=== PATIENT | male | born 1945 | race African-American/Black ===

== ENCOUNTER 2020-08-14 11:11 | Emergency (ER) | payer OTHER ==
[2020-08-14 11:47] LABS: Absolute Lymphocytes (CBC) 3.3 K/uL (0.7-4.9); Basophils % 0.7 % (0-1.3); Hematocrit 42.2 % (39.6-49.0); Lymphocytes % 45.6 % (15.3-44.8); RBC Red Blood Cell Count 4.24 M/uL (4.33-5.43)
[2020-08-14] MEDS ORDERED: NA CHLORIDE 0.9% 1,000 ML ONE (11:54)
[2020-08-14 12:04] LABS: Potassium 3.6 mmol/L (3.5-5.1)
--- NOTE | 2020-08-14 12:27 | EDPHYS ---
Physician Documentation [facility] Name: Tye Stern Age: 75 yrs Sex: Male : 1945 Arrival Date: 08/14/2020 Time: 11:13 Bed 20 Private MD: ED Physician Antonio Christopher HPI: 08/14 12:04 This 75 yrs old Black Male presents to ER via Wheelchair with complaints of syncope. rn 12:05 The patient has experienced syncope. Onset: The symptoms/episode began/occurred just rn prior to arrival. Duration: This was a single episode. Associated injury: The patient did not suffer any apparent associated injury. Associated signs and symptoms: Pertinent negatives: abdominal pain, blurred vision, chest pain, combativeness, confusion, diarrhea, headache, palpitations, seizure, shortness of breath, tingling, vertigo, vomiting, weakness. Current symptoms: Currently, the patient is not experiencing any symptoms. The patient has experienced similar episodes in the past. The patient has not recently seen a physician. Reports passed out outside of hospital waiting for bus. Reports walked all around town this AM, didn't eat much for breakfast, says its pretty hot, feels like got overheated and dry. Denies preceding chest pain/sob/abd pain/headache. Did not hit head. No trauma from syncope. Was rapid response and brought in for evaluation. No current complaints, patient feels like back to normal, and states "happens all the time". . Historical: - Allergies: 11:25 No Known Allergies; ll1 - PMHx: 11:25 CVA; Hypertension; ll1 - PSHx: 11:25 Unable to obtain; ll1 - Immunization history:: Flu vaccine is up to date. - Social history:: Smoking status: Patient denies any tobacco usage or history of. - Family history:: not pertinent. - Hospitalizations: : No recent hospitalization is reported. ROS: 12:05 Constitutional: Negative for fever, chills, and weight loss, Eyes: Negative for injury, rn pain, redness, and discharge, Neck: Negative for injury, pain, and swelling, Cardiovascular: Negative for chest pain, palpitations, and edema, Respiratory: Negative for shortness of breath, cough, wheezing, and pleuritic chest pain, Abdomen/GI: Negative for abdominal pain, nausea, vomiting, diarrhea, and constipation, Back: Negative for injury and pain, : Negative for injury, bleeding, discharge, and swelling, MS/Extremity: Negative for injury and deformity, Skin: Negative for injury, rash, and discoloration, Neuro: Negative for headache, weakness, numbness, tingling, and seizure. Exam: 12:05 Constitutional: This is a well developed, well nourished patient who is awake, alert, rn and in no acute distress. Head/Face: Normocephalic, atraumatic. Eyes: Pupils equal round and reactive to light, extra-ocular motions intact. Neck: Trachea midline, no masses palpated, and no cervical lymphadenopathy. Supple, full range of motion without nuchal rigidity, or vertebral point tenderness. No Meningismus. Cardiovascular: Regular rate and rhythm. No pulse deficits. Respiratory: No increased work of breathing, no retractions or nasal flaring. Abdomen/GI: soft, non-tender Back: No spinal tenderness. No costovertebral tenderness. Full range of motion. Skin: Warm, dry with normal turgor. Normal color with no rashes, no lesions, and no evidence of cellulitis. MS/ Extremity: Pulses equal, no cyanosis. Neurovascular intact. Full, normal range of motion. Equal circumference. Neuro: Awake and alert, GCS 15, oriented to person, place, time, and situation. Cranial nerves II-XII grossly intact. 12:05 ECG was reviewed by the Attending Physician. Vital Signs: 11:23 Weight 95.25 kg; Height 6 ft. 0 in. (182.88 cm); Pain 0/10; ll1 11:39 BP 110 / 70; Pulse 68; Resp 19 S; Temp 97.1(TE); Pulse Ox 96% on R/A; Pain 0/10; jd3 12:51 BP 122 / 74; Pulse 57; Resp 16 S; Pulse Ox 98% on R/A; jd3 11:23 Body Mass Index 28.48 (95.25 kg, 182.88 cm) ll1 MDM: 11:17 Patient medically screened. rn 12:25 Differential Diagnosis: cardiac arrhythmia, idiopathic syncope, vasovagal episode, rn dehydration. Data reviewed: vital signs, nurses notes, lab test result(s), EKG, and as a result, I will discharge patient. Counseling: I had a detailed discussion with the patient and/or guardian regarding: the historical points, exam findings, and any diagnostic results supporting the discharge/admit diagnosis, lab results, the need for outpatient follow up, to return to the emergency department if symptoms worsen or persist or if there are any questions or concerns that arise at home. Response to treatment: the patient's symptoms have markedly improved after treatment, the patient's condition has returned to base line, the patient is now symptom free, patient is well hydrated. and as a result, I will discharge patient. Special discussion: I discussed with the patient/guardian in detail that at this point there is no indication for admission to the hospital. It is understood, however, that if the symptoms persist or worsen the patient needs to return immediately for re-evaluation. 08/14 11:22 Order name: CBC with Diff rn 08/14 11:22 Order name: Basic Metabolic Panel; Complete Time: 12:09 rn 08/14 11:22 Order name: CK; Complete Time: 12:09 rn 08/14 11:22 Order name: CBC with Automated Diff; Complete Time: 12:09 EDNJ 08/14 11:47 Order name: Glucose, Ancillary Testing EDNJ 08/14 11:22 Order name: IV Start; Complete Time: 11:33 rn 08/14 11:22 Order name: EKG; Complete Time: 11:22 rn 08/14 11:22 Order name: EKG - Nurse/Tech; Complete Time: 11:33 rn 08/14 11:22 Order name: Glucose Level; Complete Time: 11:39 rn EC:05 Rate is 67 beats/min. Rhythm is regular. Left axis deviation noted. QRS is positive in rn lead I and negative in lead aVF. CT interval is normal. QRS interval is normal. QT interval is normal. No Q waves. T waves are Normal. No ST changes noted. Clinical impression: NSR w/ Non-specific ST/T Changes. Interpreted by me. Reviewed by me. Administered Medications: 11:39 Drug: NS 0.9% 1000 ml Route: IV; Rate: 1000 ml; Site: left antecubital; jd3 12:30 Follow up: Response: No adverse reaction; IV Status: Completed infusion; IV Intake: jd3 1000ml Disposition: 08/14/20 12:26 Discharged to Home. Impression: Syncope and collapse, Dehydration. - Condition is Stable. - Discharge Instructions: Dehydration, Adult, Syncope. - Medication Reconciliation Form, Thank You Letter, Antibiotic Education, Prescription Opioid Use form. - Follow up: Private Physician; When: As needed; Reason: Recheck today's complaints, Re-evaluation by your physician. - Problem is new. - Symptoms have improved. Signatures: Dispatcher [employer] EDAntonio Chopra MD MD rn Davies, Jonathon, RN RN jd3 Tamy Muhammad RN RN ll1 Corrections: (The following items were deleted from the chart) 12:52 12:26 08/14/2020 12:26 Discharged to Home. Impression: Syncope and collapse; jd3 Dehydration. Condition is Stable. Forms are Medication Reconciliation Form, Thank You Letter, Antibiotic Education, Prescription Opioid Use. Follow up: Private Physician; When: As needed; Reason: Recheck today's complaints, Re-evaluation by your physician. Problem is new. Symptoms have improved. rn
--- NOTE | 2020-08-14 12:27 | ER ---
Nurse's Notes [facility] Name: Tye Stern Age: 75 yrs Sex: Male : 1945 Arrival Date: 08/14/2020 Time: 11:13 Bed 20 Private MD: Diagnosis: Syncope and collapse;Dehydration Presentation: 08/14 11:23 Chief complaint: Patient states: Walking around [email or web address] this morning, not drinking fluids ll1 well. Stopped to wait for the bus, and passed out 5 min [employer]CIAL [employer] ADMINISTR[employer]. Reports being to tired and weak from walking too much. No pain, denies N/V/D. Coronavirus screen: Client denies travel out of the [place] in the last 14 days. At this time, the client does not indicate any symptoms associated with coronavirus-19. Ebola Screen: Patient denies travel to an Ebola-affected area in the 21 days before illness onset. Initial Sepsis Screen: Does the patient meet any 2 criteria? No. Patient's initial sepsis screen is negative. Does the patient have a suspected source of infection? No. Patient's initial sepsis screen is negative. Risk Assessment: Do you want to hurt yourself or someone else? Patient reports no desire to harm self or others. Onset of symptoms was August 14, 2020. 11:23 Method Of Arrival: Wheelchair ll1 11:23 Acuity: HALIMA 3 ll1 Historical: - Allergies: 11:25 No Known Allergies; ll1 - PMHx: 11:25 CVA; Hypertension; ll1 - PSHx: 11:25 Unable to obtain; ll1 - Immunization history:: Flu vaccine is up to date. - Social history:: Smoking status: Patient denies any tobacco usage or history of. - Family history:: not pertinent. - Hospitalizations: : No recent hospitalization is reported. Screenin:41 Abuse screen: Denies threats or abuse. Nutritional screening: No deficits noted. jd3 Tuberculosis screening: No symptoms or risk factors identified. Fall Risk Ambulatory Aid- None/Bed Rest/Nurse Assist (0 pts). Gait- Normal/Bed Rest/Wheelchair (0 pts) Mental Status- Oriented to own ability (0 pts). Total Mckeon Fall Scale indicates No Risk (0-24 pts). Assessment: 11:40 General: Appears in no apparent distress. comfortable, Behavior is calm, cooperative, jd3 appropriate for age. Pain: Denies pain. Neuro: Level of Consciousness is awake, alert, obeys commands, Oriented to person, place, time, situation. Cardiovascular: Capillary refill < 3 seconds Patient's skin is warm and dry. Rhythm is regular. Respiratory: Airway is patent Respiratory effort is even, unlabored, Respiratory pattern is regular, symmetrical, Denies cough, shortness of breath. GI: No signs and/or symptoms were reported involving the gastrointestinal system. : No signs and/or symptoms were reported regarding the genitourinary system. EENT: No signs and/or symptoms were reported regarding the EENT system. Derm: Skin is intact, Skin is diaphoretic, Skin is normal, Skin temperature is warm. Musculoskeletal: Circulation, motion, and sensation intact. Range of motion: intact in all extremities. 12:51 Reassessment: Patient appears in no apparent distress at this time. Patient and/or jd3 family updated on plan of care and expected duration. Pain level reassessed. Patient is alert, oriented x 3, equal unlabored respirations, skin warm/dry/pink. Patient denies pain at this time. Patient states feeling better. Vital Signs: 11:23 Weight 95.25 kg; Height 6 ft. 0 in. (182.88 cm); Pain 0/10; ll1 11:39 BP 110 / 70; Pulse 68; Resp 19 S; Temp 97.1(TE); Pulse Ox 96% on R/A; Pain 0/10; jd3 12:51 BP 122 / 74; Pulse 57; Resp 16 S; Pulse Ox 98% on R/A; jd3 11:23 Body Mass Index 28.48 (95.25 kg, 182.88 cm) ll1 ED Course: 11:13 Patient arrived in ED. am2 11:16 Devante Askew, BELLA is Primary Nurse. jd3 11:16 Arm band placed on Patient placed in an exam room, on a stretcher. bp 11:17 Antonio Christopher MD is Attending Physician. rn 11:25 Triage completed. ll1 11:35 Initial lab(s) drawn, by me, sent to lab. Inserted saline lock: 20 gauge in left dh3 antecubital area, using aseptic technique. Blood collected. 11:41 Patient has correct armband on for positive identification. Bed in low position. Call jd3 light in reach. Side rails up X 1. sugarcane planter on. Pulse ox on. NIBP on. 12:52 No provider procedures requiring assistance completed. IV discontinued, intact, jd3 bleeding controlled, No redness/swelling at site. Pressure dressing applied. Administered Medications: 11:39 Drug: NS 0.9% 1000 ml Route: IV; Rate: 1000 ml; Site: left antecubital; jd3 12:30 Follow up: Response: No adverse reaction; IV Status: Completed infusion; IV Intake: jd3 1000ml Intake: 12:30 IV: 1000ml; Total: 1000ml. jd3 Outcome: : Discharge ordered by . rn : Discharged to home ambulatory, with family. jd3 12:52 Condition: stable 12:52 Discharge instructions given to patient, family, Instructed on discharge instructions, follow up and referral plans. Demonstrated understanding of instructions, follow-up care. 12:52 Patient left the ED. jd3 Signatures: Antonio Christopher MD MD rn Moreno, Amanda Kitty Su [facility] Devante Askew RN RN jd3 Francesco Thompson RN RN Tamy Mejia RN RN ll1
[2020-08-14 13:03] VITALS: TEMP 97.1
[2020-08-14 13:05] VITALS: BP 122/74; O2SAT 98
== END 2020-08-14 12:52 | disposition home or self-care (01) ==
LOC: ER 11:11
DX: E86.0 Dehydration (principal); I10 Essential (primary) hypertension
CPT/HCPCS: 85025; 80048; 36415; 82550; 82947; J7030; 93005; 96360; 99284